=== PATIENT | female | born 1930 | race Caucasian/White ===

== ENCOUNTER 2017-10-11 18:15 | Inpatient (IN) | payer OTHER ==
[~2017-10-11] VITALS: Ht 157.5 cm; Wt 45.8 kg
[~2017-10-11 18:15] MED LIST: ASPI-231 PO; CHOL20007 PO
[2017-10-11] MEDS ORDERED: methylPREDNISolone SOD SUCC 125 MG/2 ML VL IV ONE (18:30)
[2017-10-11 18:49] LABS: Basophils # (auto) 0.1 uL; Eosinophils # (auto) 0 uL; Lymphocytes # (auto) 0.5 uL; Monocytes # (auto) 0.4 uL; Red Cell Distribution Width 16.6 % (11.8-14.3)
[2017-10-11 18:51] LABS: Basophils % (auto) 0.7 % (0.0-2.0); Eosinophils % (auto) 0.4 % (0.0-7.0); Hematocrit 40.8 % (36.0-46.0); Hemoglobin 13.2 g/dL (12.2-16.2); Lymphocytes % (auto) 6.8 % (10.0-50.0); Mean Corpuscular Hemoglobin 34.2 pg (28.0-32.0); Mean Corpuscular Hgb Conc. 32.3 g/dL (32.0-36.0); Mean Corpuscular Volume 105.8 fL (80.0-100.0); Monocytes % (auto) 4.8 % (0.0-12.0); Neutrophils # (auto) 6.6 uL; Neutrophils % (auto) 87.3 % (37.0-80.0); Nucleated Red Blood Cells % 0.2 %; Platelet Count (auto) 157 10^3/uL (140-450); Red Blood Cells 3.86 10^6/uL (4.0-5.20); White Blood Cell 7.6 10^3/uL (4.4-10.8)
[2017-10-11 19:21] LABS: Albumin 3.8 g/dL (3.4-5.0); BUN/Creatinine Ratio 16.5; Bilirubin, Total 0.8 mg/dL (0.2-1.0); Calcium 9.1 mg/dL (8.5-10.1); Magnesium 2.4 mg/dL (1.6-2.6); Potassium 4.7 mmol/L (3.5-5.1); Total Protein 7.5 g/dL (6.4-8.2)
[2017-10-11] MEDS ORDERED: FUROSEMIDE 40 MG/4 ML VIAL IV ONE (19:45)
[2017-10-11] MEDS ORDERED: NITROGLYCERIN 0.4 MG SL TAB SL PRN (21:00)
[2017-10-11] MEDS ORDERED: MORPHINE SULFATE 4 MG/ML SYR/VIAL IV PRN (21:00)
[2017-10-11] MEDS ORDERED: LEVOFLOXACIN 500MG 100 ML IV ONE (21:15)
[2017-10-11] MEDS ORDERED: ACYCLOVIR 400 MG TAB PO ONE (21:15)
[2017-10-11 21:20] LABS: Urine Bacteria MANY /hpf (None Seen); Urine Blood 1+ /uL (Negative); Urine Hyaline Cast FEW /lpf (0 - 2); Urine Specific Gravity 1.008 (1.001-1.035); Urine WBC 6 /hpf (0 - 5)
[2017-10-11] MEDS: FUROSEMIDE 20 MG TAB PO SCH (21:37)
[2017-10-11 21:48] VITALS: BP 138/95
[2017-10-11] MEDS: AMIODARONE HCL 200 MG TAB PO SCH (22:00)
[2017-10-12] VITALS (8 sets, daily range): BP systolic 98–151; BP diastolic 67–95
[2017-10-12] MEDS: IPRATROPIUM BROM 0.5 MG/2.5ML INH SOL NEB SCH ×4 (06:19→19:20)
[2017-10-12] MEDS: ALBUTEROL SULF 2.5 MG/0.5ML(0.5%) NEB SOLN NEB SCH ×4 (06:19→19:20)
[2017-10-12] MEDS: FUROSEMIDE 20 MG TAB PO SCH ×2 (06:29→17:48)
[2017-10-12 06:57] LABS: Albumin 3.3 g/dL (3.4-5.0); BUN/Creatinine Ratio 22.8; Basophils # (auto) 0 uL; Calcium 8.6 mg/dL (8.5-10.1); Eosinophils # (auto) 0 uL; Hemoglobin 12.1 g/dL (12.2-16.2); Lymphocytes # (auto) 0.3 uL; Monocytes # (auto) 0.1 uL; Neutrophils # (auto) 4.8 uL; Neutrophils % (auto) 92.2 % (37.0-80.0); Red Cell Distribution Width 15.6 % (11.8-14.3); White Blood Cell 5.2 10^3/uL (4.4-10.8)
[2017-10-12 06:59] LABS: Hematocrit 36.6 % (36.0-46.0); Lymphocytes % (auto) 5.6 % (10.0-50.0); Mean Corpuscular Hemoglobin 33.9 pg (28.0-32.0); Mean Corpuscular Volume 102.8 fL (80.0-100.0); Monocytes % (auto) 2.2 % (0.0-12.0); Nucleated Red Blood Cells % 0.3 %; Platelet Count (auto) 156 10^3/uL (140-450); Red Blood Cells 3.56 10^6/uL (4.0-5.20)
[2017-10-12 07:02] LABS: Bilirubin, Total 0.7 mg/dL (0.2-1.0); Total Protein 6.6 g/dL (6.4-8.2)
[2017-10-12] MEDS ORDERED: AMIODARONE HCL 200 MG TAB PO ONE (07:45)
[2017-10-12] MEDS ORDERED: LEVOFLOXACIN 500MG 100 ML IV SCH (10:00)
[2017-10-12] MEDS: AMIODARONE HCL 200 MG TAB PO SCH ×2 (10:04→22:25)
[2017-10-12] MEDS: ACYCLOVIR 400 MG TAB PO SCH (10:05)
[2017-10-12] MEDS: ENOXAPARIN SOD 40 MG/0.4 ML SYRINGE SC SCH ×2 (10:06→22:25)
[2017-10-12] MEDS: AMIODARONE HCL 900 MG in DEXTROSE 500 ML IV SCH (10:31)
[2017-10-12] MEDS ORDERED: ACETAMINOPHEN 325 MG TAB PO ONE (10:38)
[2017-10-12] MEDS: ACETAMINOPHEN 325 MG TAB PO PRN (10:40)
[2017-10-12] MEDS ORDERED: SODIUM CHLORIDE 0.9% 500 ML IV ONE (11:00)
[2017-10-12 12:11] LABS: INR 1.12 (0.9-1.15); Partial Thromboplastin Time 31.8 sec (22.64-33.71); Prothrombin Time 12.2 sec (9.37-12.3)
[2017-10-12] MEDS ORDERED: AMI200T PO (14:09)
[2017-10-12] MEDS ORDERED: HYDR-531 PO (14:14)
[2017-10-12] MEDS ORDERED: APIX2.5T PO (14:14)
[2017-10-12] MEDS ORDERED: LEV88T PO (14:16)
[2017-10-12] MEDS ORDERED: MIRA25TA PO (14:16)
[2017-10-12] MEDS ORDERED: FUR20T PO (14:16)
[2017-10-12] MEDS ORDERED: SENN1TAB36 PO (14:21)
[2017-10-12] MEDS ORDERED: VITATAB PO (14:25)
[2017-10-12] MEDS ORDERED: CALC950T2 PO (14:25)
[2017-10-12] MEDS ORDERED: LACTCAP35 PO (14:25)
[2017-10-12] MEDS: MORPHINE SULFATE 4 MG/ML SYR/VIAL IV PRN (20:36)
[2017-10-13] VITALS (9 sets, daily range): BP systolic 103–149; BP diastolic 67–99
[2017-10-13] MEDS: IPRATROPIUM BROM 0.5 MG/2.5ML INH SOL NEB SCH ×4 (00:58→18:13)
[2017-10-13] MEDS: ALBUTEROL SULF 2.5 MG/0.5ML(0.5%) NEB SOLN NEB SCH ×4 (00:59→18:13)
[2017-10-13] MEDS: AMIODARONE HCL 900 MG in DEXTROSE 500 ML IV SCH (02:30)
[2017-10-13 05:44] LABS: Basophils # (auto) 0 uL; Basophils % (auto) 0.3 % (0.0-2.0); Eosinophils # (auto) 0 uL; Eosinophils % (auto) 0.3 % (0.0-7.0); Hematocrit 34.2 % (36.0-46.0); Hemoglobin 11.3 g/dL (12.2-16.2); Lymphocytes # (auto) 0.8 uL; Lymphocytes % (auto) 13.3 % (10.0-50.0); Mean Corpuscular Hemoglobin 33.4 pg (28.0-32.0); Mean Corpuscular Hgb Conc. 32.9 g/dL (32.0-36.0); Mean Corpuscular Volume 101.4 fL (80.0-100.0); Monocytes # (auto) 0.5 uL; Neutrophils # (auto) 4.4 uL; Neutrophils % (auto) 77.1 % (37.0-80.0); Nucleated Red Blood Cells % 0.3 %; Platelet Count (auto) 142 10^3/uL (140-450); Red Blood Cells 3.38 10^6/uL (4.0-5.20); Red Cell Distribution Width 15.5 % (11.8-14.3); White Blood Cell 5.7 10^3/uL (4.4-10.8)
[2017-10-13 06:13] LABS: Calcium 8.3 mg/dL (8.5-10.1); Potassium 3.8 mmol/L (3.5-5.1)
[2017-10-13] MEDS: FUROSEMIDE 20 MG TAB PO SCH ×2 (06:19→17:34)
[2017-10-13 06:50] LABS: BUN/Creatinine Ratio 24.6
[2017-10-13] MEDS: cefTRIAXone 1GM/10ml IVPUSH 10 ML IV SCH ×2 (09:29→20:37)
[2017-10-13] MEDS: ENOXAPARIN SOD 40 MG/0.4 ML SYRINGE SC SCH ×2 (09:54→22:16)
[2017-10-13] MEDS: ACYCLOVIR 400 MG TAB PO SCH (09:54)
[2017-10-13] MEDS: SODIUM CHLORIDE 0.9% 1,000 ML IV SCH (09:54)
[2017-10-13] MEDS ORDERED: AZITHROMYCIN 500MG/ 250ML 250 ML IV SCH (10:00)
[2017-10-13] MEDS: MORPHINE SULFATE 4 MG/ML SYR/VIAL IV PRN (10:58)
[2017-10-13] MEDS: AZITHROMYCIN 500MG/ 250ML 250 ML IV SCH (11:02)
[2017-10-13] MEDS: ACETAMINOPHEN 325 MG TAB PO PRN ×2 (17:33→23:57)
[2017-10-13] MEDS: AMIODARONE HCL 200 MG TAB PO SCH (20:08)
[2017-10-14] VITALS: BP 132/76
[2017-10-14] MEDS: IPRATROPIUM BROM 0.5 MG/2.5ML INH SOL NEB SCH ×4 (00:15→18:50)
[2017-10-14] MEDS: ALBUTEROL SULF 2.5 MG/0.5ML(0.5%) NEB SOLN NEB SCH ×4 (00:15→18:50)
[2017-10-14] MEDS: SODIUM CHLORIDE 0.9% 1,000 ML IV SCH ×2 (02:10→09:00)
[2017-10-14] MEDS: MORPHINE SULFATE 4 MG/ML SYR/VIAL IV PRN (02:14)
[2017-10-14 04:00] VITALS: BP 146/92
[2017-10-14 05:05] LABS: Basophils # (auto) 0 uL; Basophils % (auto) 0.3 % (0.0-2.0); Eosinophils # (auto) 0 uL; Eosinophils % (auto) 0.6 % (0.0-7.0); Hematocrit 33.2 % (36.0-46.0); Lymphocytes # (auto) 0.5 uL; Mean Corpuscular Hemoglobin 33.3 pg (28.0-32.0); Mean Corpuscular Volume 100.9 fL (80.0-100.0); Monocytes # (auto) 0.4 uL; Monocytes % (auto) 8.8 % (0.0-12.0); Neutrophils # (auto) 3.2 uL; Neutrophils % (auto) 77.3 % (37.0-80.0); Nucleated Red Blood Cells % 0.3 %; Platelet Count (auto) 131 10^3/uL (140-450); Red Blood Cells 3.29 10^6/uL (4.0-5.20); Red Cell Distribution Width 15.7 % (11.8-14.3); White Blood Cell 4.2 10^3/uL (4.4-10.8)
[2017-10-14 05:23] LABS: BUN/Creatinine Ratio 29.7; Calcium 7.8 mg/dL (8.5-10.1); Potassium 3.1 mmol/L (3.5-5.1)
[2017-10-14 05:24] LABS: Magnesium 1.9 mg/dL (1.6-2.6)
[2017-10-14] MEDS: FUROSEMIDE 20 MG TAB PO SCH ×2 (06:15→18:51)
[2017-10-14] MEDS: cefTRIAXone 1GM/10ml IVPUSH 10 ML IV SCH (08:57)
[2017-10-14] MEDS ORDERED: POTASSIUM CHLORIDE 40 MEQ, LIDOCAINE 1% (LOCAL ANESTH.) 4 ML in SODIUM CHL 0.9% 100 ML IV ONE (09:00)
[2017-10-14] MEDS: ACYCLOVIR 400 MG TAB PO SCH (11:38)
[2017-10-14] MEDS: ACETAMINOPHEN 325 MG TAB PO PRN (11:38)
[2017-10-14] MEDS: AMIODARONE HCL 200 MG TAB PO SCH (11:38)
[2017-10-14] MEDS: ENOXAPARIN SOD 40 MG/0.4 ML SYRINGE SC SCH (11:39)
[2017-10-14] MEDS: AZITHROMYCIN 500MG/ 250ML 250 ML IV SCH (11:44)
[2017-10-14 12:00] VITALS: BP 124/97
[2017-10-14] MEDS ORDERED: MIDAZOLAM HCL 1MG/1ML-2 ML VIAL ONE ×2 (13:57→14:07)
[2017-10-14] MEDS ORDERED: diphenhdrAMINE HCL 50 MG/1 ML VL ONE (14:08)
[2017-10-14] MEDS ORDERED: fentaNYL CITRATE 100 MCG/2 ML VL ONE (14:08)
[2017-10-14] MEDS ORDERED: APIXABAN 2.5 MG TAB PO SCH (15:52)
[2017-10-14 16:00] VITALS: BP 127/75
[2017-10-14] MEDS ORDERED: fentaNYL CITRATE 100 MCG/2 ML VL IV ONE (16:45)
[2017-10-14] MEDS ORDERED: MIDAZOLAM HCL 1MG/1ML-2 ML VIAL IV ONE (16:45)
[2017-10-14] MEDS ORDERED: diphenhdrAMINE HCL 50 MG/1 ML VL IV ONE (16:45)
[2017-10-14 20:00] VITALS: BP 130/73
== END 2017-10-14 20:22 | DRG 871 ==
LOC: EDBD 18:15 → ER 18:25 → TELE 18:26 → DOU IN ICU 10-12 16:08
PROVIDERS: ADMIT Internal Medicine; ATTEND Internal Medicine
PROC: 0W9B3ZZ Drainage of Left Pleural Cavity, Percutaneous Approach (ICD-10-PCS; 2017-10-12)
PROC: 5A2204Z Restoration of Cardiac Rhythm, Single (ICD-10-PCS; principal; 2017-10-14)
PROC: B246ZZ4 Ultrasonography of Right and Left Heart, Transesophageal (ICD-10-PCS; 2017-10-14)
DX: A41.9 Sepsis, unspecified organism (principal); J96.01 Acute respiratory failure with hypoxia; J90 Pleural effusion, not elsewhere classified; I50.43 Acute on chronic combined systolic (congestive) and diastolic (congestive) heart failure; J18.9 Pneumonia, unspecified organism; I48.0 Paroxysmal atrial fibrillation; I13.0 Hypertensive heart and chronic kidney disease with heart failure and stage 1 through stage 4 chronic kidney disease, or unspecified chronic kidney disease; B02.9 Zoster without complications; I42.9 Cardiomyopathy, unspecified; J44.0 Chronic obstructive pulmonary disease with (acute) lower respiratory infection; I08.3 Combined rheumatic disorders of mitral, aortic and tricuspid valves; N39.0 Urinary tract infection, site not specified; M19.90 Unspecified osteoarthritis, unspecified site; I25.10 Atherosclerotic heart disease of native coronary artery without angina pectoris; N18.3 Chronic kidney disease, stage 3 (moderate); Z79.01 Long term (current) use of anticoagulants; Z82.49 Family history of ischemic heart disease and other diseases of the circulatory system; Z90.710 Acquired absence of both cervix and uterus; Z99.81 Dependence on supplemental oxygen; I25.2 Old myocardial infarction; Z80.9 Family history of malignant neoplasm, unspecified; Z79.899 Other long term (current) drug therapy; Z98.51 Tubal ligation status
CPT/HCPCS: 32555; 36415; 36600; 70450; 71045; 72125; 76604; 76942; 80048; 80053; 81001; 82805; 83605; 83735; 83880; 84100; 84484; 85025; 85610; 85730; 87040; 87070; 87081; 87086; 92960; 93005; 93306; 93312; 93313; 94640; 96374; 96375; 96376; 97163; 99291; J1956; J2001; J2250